=== PATIENT | male | born 1980 | race Two or more races ===

== ENCOUNTER 2017-12-28 19:24 | Emergency (ER) | payer MEDICAID ==
[2017-12-28] MEDS ORDERED: NAPROXEN 250 MG TABLET PO STA (20:23)
[2017-12-28] MEDS ORDERED: BENZONATATE 100 MG CAPSULE PO STA (20:23)
--- NOTE | 2017-12-28 20:27 | ED Physician Documentation ---
PD HPI URI - Stated complaint Stated Complaint: SOA/COUGH/BARBER - Chief complaint Chief Complaint: Heent - History obtained from History obtained from: Patient - Additional information Additional information: 37-year-old male presents the emergency department with nasal congestion, cough, body aches and general fatigue. The patient's partner has similar symptoms. No attempts at symptom management. Symptoms are described as mild. No other associated symptoms Review of Systems Constitutional: reports: Myalgias, Fatigue Ears: denies: Ear pain Nose: reports: Rhinorrhea / runny nose, Congestion Throat: denies: Sore throat Cardiac: denies: Chest pain / pressure Respiratory: reports: Cough : denies: Dysuria Skin: denies: Rash Neurologic: denies: Headache PD PAST MEDICAL HISTORY - Past Medical History Past Medical History: Yes Cardiovascular: None Respiratory: Asthma Neuro: None Endocrine/Autoimmune: Type 1 diabetes GI: None : None HEENT: None Psych: Anxiety Musculoskeletal: None Derm: None Other Past Medical History: BORDERLINE DM X years ago. - Past Surgical History Past Surgical History: Yes General: Appendectomy - Present Medications Home Medications: Ambulatory Orders Medication Instructions Recorded Confirmed Benzonatate [Tessalon Perle] 100 - 200 mg PO TID PRN #30 capsule 12/28/17 Naproxen [Naprosyn] 500 mg PO BID PRN 30 Days #30 12/28/17 tablet - Allergies Allergies/Adverse Reactions: Allergies Allergy/AdvReac Type Severity Reaction Status Date / Time morphine AdvReac Hives Verified 12/28/17 19:56 - Social History Does the pt smoke?: Yes Smoking Status: Current every day smoker Does the pt drink ETOH?: Yes Does the pt have substance abuse?: No - Immunizations Immunizations are current?: No - POLST Patient has POLST: No PD ED PE NORMAL - General General: Alert and oriented X 3, No acute distress - HEENT HEENT: Atraumatic, PERRL, EOMI, Ears normal - Neck Neck: Supple, no meningeal sign - Respiratory Respiratory: No respiratory distress, Clear bilaterally - Derm Derm: Normal color - Extremities Extremities: No deformity - Neuro Neuro: Alert and oriented X 3, Normal speech - Psych Psych: Normal affect Results - Vitals Vitals: Vital Signs - 24 hr 12/28/17 19:32 Temperature 36.6 C Heart Rate 104 H Respiratory 20 Rate Blood Pressure 142/91 H O2 Saturation 98 Oxygen O2 Source Room air PD MEDICAL DECISION MAKING - ED course ED course: The patient's symptoms are consistent with a viral etiology and the patient appears appropriate for outpatient management. I discussed the findings and plan with the patient understands and agrees. I discussed warning signs and recommended returning for any worsening or any concerns. Departure - Departure Disposition: Home, Self Care Clinical Impression: Viral URI with cough Condition: Good Instructions: ED Upper Resp Infec No Abx Tx Ch Prescriptions: Benzonatate [Tessalon Perle] 100 - 200 mg PO TID PRN #30 capsule PRN Reason: Cough Naproxen [Naprosyn] 500 mg PO BID PRN 30 Days #30 tablet PRN Reason: Pain Comments: Please follow-up with primary care. Please return for any worsening or any concerns
[2017-12-28 20:45] VITALS: BP 131/86
== END 2017-12-28 20:45 | disposition home or self-care (01) ==
LOC: ED 19:24
DX: J06.9 Acute upper respiratory infection, unspecified (principal); J45.909 Unspecified asthma, uncomplicated; E10.9 Type 1 diabetes mellitus without complications; F17.200 Nicotine dependence, unspecified, uncomplicated
CPT/HCPCS: 99283; A9270

== ENCOUNTER 2018-02-03 09:39 | Emergency (ER) | payer MEDICAID ==
--- NOTE | 2018-02-03 10:10 | ED Physician Documentation ---
PD HPI NVD - Stated complaint Stated Complaint: VOMITING/STOMACH PX - Chief complaint Chief Complaint: Abd Pain - History obtained from History obtained from: Patient - History of Present Illness Timing - onset: How many days ago (2) Timing - duration: Days (2) Timing - details: Abrupt onset, Still present Associated symptoms: Abdominal pain (cramping upper abd). No: Fever, Chest pain Contributing factors: Bad food (he thinks it was a bad corndog that he ate.). No: Sick contact Improved by: Vomiting. No: Eating Worsened by: Eating, Moving. No: Breathing Similar symptoms before: Has not had sx before Recently seen: Not recently seen Review of Systems Constitutional: reports: Myalgias. denies: Fever, Chills Nose: denies: Rhinorrhea / runny nose, Congestion Throat: denies: Sore throat Respiratory: denies: Cough GI: reports: Abdominal Pain, Nausea, Vomiting, Diarrhea (mild). denies: Abdominal Swelling, Constipation, Hematemesis, Bloody / black stool : denies: Dysuria, Frequency Skin: denies: Rash, Lesions Neurologic: reports: Generalized weakness, Near syncope. denies: Focal weakness, Numbness, Syncope, Altered mental status PD PAST MEDICAL HISTORY - Past Medical History Cardiovascular: None Respiratory: Asthma Neuro: None Endocrine/Autoimmune: Type 1 diabetes GI: None : None HEENT: None Psych: Anxiety Musculoskeletal: None Derm: None - Past Surgical History Past Surgical History: Yes General: Appendectomy - Present Medications Home Medications: Ambulatory Orders Medication Instructions Recorded Confirmed Dicyclomine [Bentyl] 10 mg PO Q8H PRN #15 capsule 02/03/18 Diphenoxylate/Atropine [Lomotil] 1 each PO QID PRN #12 tablet 02/03/18 Ondansetron Odt [Zofran] 4 mg TL Q6H PRN #10 tablet 02/03/18 - Allergies Allergies/Adverse Reactions: Allergies Allergy/AdvReac Type Severity Reaction Status Date / Time morphine AdvReac Hives Verified 02/03/18 09:52 - Social History Does the pt smoke?: Yes Smoking Status: Current every day smoker Does the pt drink ETOH?: Yes Does the pt have substance abuse?: No - Immunizations Immunizations are current?: No - POLST Patient has POLST: No PD ED PE NORMAL - Vitals Vital signs reviewed: Yes - General General: Alert and oriented X 3, No acute distress, Well developed/nourished - HEENT HEENT: Pharynx benign. No: Moist mucous membranes - Neck Neck: Supple, no meningeal sign, No adenopathy - Cardiac Cardiac: RRR, No murmur - Respiratory Respiratory: Clear bilaterally - Abdomen Abdomen: Normal bowel sounds, Soft, Non distended, No organomegaly, Other (tender RUQ and epigastric area without percussion nor rebound. ) - Male Male : Deferred - Rectal Rectal: Deferred - Back Back: No CVA TTP - Derm Derm: Normal color, Warm and dry - Extremities Extremities: No deformity, No tenderness to palpate, Normal ROM s pain, No edema, No calf tenderness / cord - Neuro Neuro: Alert and oriented X 3, No motor deficit, Normal speech Results - Vitals Vitals: Vital Signs - 24 hr 02/03/18 02/03/18 02/03/18 09:51 12:25 13:37 Temperature 36 C L Heart Rate 78 67 79 Respiratory 20 16 16 Rate Blood Pressure 160/92 H 117/80 130/76 O2 Saturation 100 98 96 Oxygen O2 Source Room air - Labs Labs: Laboratory Tests 02/03/18 02/03/18 10:10 10:10 WBC 16.8 H RBC 5.70 Hgb 16.9 Hct 49.4 MCV 86.7 MCH 29.6 MCHC 34.2 RDW 13.4 Plt Count 218 MPV 9.5 Neut # (Auto) 13.5 H Lymph # (Auto) 2.2 Pender # (Auto) 0.9 Eos # (Auto) 0.1 Baso # (Auto) 0.1 Absolute Nucleated RBC 0.01 Nucleated RBC % 0.0 Sodium 135 Potassium 4.1 Chloride 103 Carbon Dioxide 22 Anion Gap 10.0 BUN 17 Creatinine 1.0 Estimated GFR (MDRD) 84 L Glucose 169 H Calcium 9.5 Total Bilirubin 1.1 H AST 41 ALT 73 H Alkaline Phosphatase 96 Total Protein 8.3 H Albumin 4.8 Globulin 3.5 Albumin/Globulin Ratio 1.4 Lipase 25 - Rads (name of study) RUQ U S Radiology: Prelim report reviewed (normal study without signs cholecystitis. ) PD MEDICAL DECISION MAKING - ED course Complexity details: reviewed results, re-evaluated patient (feeling better with fluids and meds. Normal labs and U/S. Presume viral GE or food related. ), considered differential, d/w patient Departure - Departure Disposition: 01 Home, Self Care Clinical Impression: Nausea vomiting and diarrhea Condition: Stable Record reviewed to determine appropriate education?: Yes Instructions: ED Diet Vomiting Diarrhea Prescriptions: Dicyclomine [Bentyl] 10 mg PO Q8H PRN #15 capsule PRN Reason: Abdominal Pain Diphenoxylate/Atropine [Lomotil] 1 each PO QID PRN #12 tablet PRN Reason: Diarrhea Ondansetron Odt [Zofran] 4 mg TL Q6H PRN #10 tablet PRN Reason: Nausea / Vomiting Comments: Rest at home today with small frequent fluids. [place] food only such as rice and crackers or pasta initially and progress as able. Ondansetron if needed for nausea. Dicyclomine for cramps and belly pain. Lomotil if needed for diarrhea. Recheck if not improved over the next day or 2 as he should be feeling pretty normal from stomach flu or food poisoning at by that point. There are no signs of gallbladder pancreas or liver problems. Discharge Date/Time: 02/03/18 13:42
[2018-02-03 10:25] LABS: BASOPHILS # (AUTO) 0.1 10^3/uL (0.0-0.1); BASOPHILS % (AUTO) 0.4 %; EOSINOPHILS # (AUTO) 0.1 10^3/uL (0.0-0.7); EOSINOPHILS % (AUTO) 0.6 %; HGB - HEMOGLOBIN 16.9 g/dL (14.0-18.0); LYMPHOCYTES # (AUTO) 2.2 10^3/uL (1.5-3.5); LYMPHOCYTES % (AUTO) 12.8 %; MEAN CORPUSCULAR HEMOGLOBIN 29.6 pg (27.0-31.0); MEAN CORPUSCULAR HGB CONC 34.2 g/dL (32.0-36.0); MEAN CORPUSCULAR VOLUME 86.7 fL (80.0-94.0); MEAN PLATELET VOLUME 9.5 fL (7.4-11.4); MONOCYTES # (AUTO) 0.9 10^3/uL (0.0-1.0); MONOCYTES % (AUTO) 5.6 %; NEUTROPHILS # (AUTO) 13.5 10^3/uL (1.5-6.6); NEUTROPHILS % (AUTO) 80.6 %; PLT - PLATELET COUNT 218 10^3/uL (130-450); RED CELL DISTRIBUTION WIDTH 13.4 % (12.0-15.0); WHITE BLOOD COUNT 16.8 x10^3/uL (4.8-10.8)
[2018-02-03] MEDS ORDERED: ONDANSETRON 4 MG/2 ML VIAL IVP STA (10:25)
[2018-02-03] MEDS ORDERED: KETOROLAC 60 MG/2 ML VIAL IVP STA (10:25)
[2018-02-03] MEDS ORDERED: HYDROmorphone 1 MG/ML CARPUJECT IVP STA ×2 (10:25→12:32)
[2018-02-03] MEDS ORDERED: SODIUM CHLORIDE 0.9% 1,000 ML IV ONE ×2 (10:25→10:26)
[2018-02-03 10:40] LABS: ALBUMIN 4.8 g/dL (3.2-5.5); ALBUMIN/GLOBULIN RATIO 1.4 (1.0-2.2); BILIRUBIN,TOTAL 1.1 mg/dL (0.2-1.0); CALCIUM 9.5 mg/dL (8.5-10.3); TOTAL PROTEIN 8.3 g/dL (6.7-8.2)
--- NOTE | 2018-02-03 11:26 | Ultrasound Report ---
Reason: vomiting and upper abd pain; eval gallbladder Procedure Date: 02/03/2018 Accession Number: [id number] / [id number] Procedure: US - Abdomen Limited CPT Code: FULL RESULT: EXAM: ABDOMEN ULTRASOUND LIMITED, RUQ EXAM DATE: 02/03/2018 11:13 AM. CLINICAL HISTORY: Vomiting and upper abdominal pain; evaluate gallbladder. COMPARISON: None. TECHNIQUE: Real-time scanning was performed with static images obtained. FINDINGS: The examination is limited by the patient's body habitus and poor acoustic windows. Liver: Liver parenchyma is echogenic and heterogeneous which can be seen with parenchymal disease such as steatosis. Right lobe of the liver measures at least 18 cm. Geographic relatively hypoechoic liver parenchyma suggests focal fatty sparing in the gallbladder fossa, which supports the diagnosis of hepatic steatosis. Main portal vein flow: Hepatopetal. Gallbladder: The gallbladder wall is thin and the gallbladder is not distended. The sonographic Garber's sign could not be evaluated due to premedication with opioids. Sludge is seen within the gallbladder, no calculi are identified. Biliary System: CBD measures 5 mm. No intrahepatic or extrahepatic ductal dilatation. Other: Right kidney measures 11.7 cm in maximal dimension, no hydronephrosis, calculi or gross mass. IMPRESSION: Hepatic steatosis. Sonographically, low suspicion for cholecystitis given nondistention of gallbladder and normal-appearing gallbladder wall. Inability to interrogate the sonographic Garber's sign as well as poor acoustic windows do not exclude the diagnosis entirely. If clinical suspicion is very high, CT abdomen could be obtained with contrast for rapid evaluation. Definitive imaging is HIDA. [facility]
[2018-02-03] MEDS ORDERED: HYDROcod/ACETAM 5/325 MG TABLET PO STA (13:08)
[2018-02-03 13:38] VITALS: BP 130/76
== END 2018-02-03 13:42 | disposition home or self-care (01) ==
LOC: ED 09:39
DX: R11.2 Nausea with vomiting, unspecified (principal); R19.7 Diarrhea, unspecified; R10.10 Upper abdominal pain, unspecified; E10.9 Type 1 diabetes mellitus without complications; F17.200 Nicotine dependence, unspecified, uncomplicated
CPT/HCPCS: 36415; 76705; 80053; 83690; 85025; 96361; 96374; 96376; 99283; 99284; A9270; J1170